=== PATIENT | female | born 1965 | race Caucasian/White ===

== ENCOUNTER → 2018-09-21 | Day surgery (SDC) | payer BC ==
[~2018-09-21] MED LIST: FENTANYL CITRATE/PF 100MCG/2 ML INJ ONE; FIBER PO; FISH OIL PO; GLUCOSAMINE &1 EAC1 PO; HYOSCYAMINE SULFATE 0.5 MG/ML INJ ONE; LEVOTHYROXINE25 MCG; LIDOCAINE HCL 2% LOCAL INJ 5 ML SDV VIAL INJ ONE; MIDAZOLAM HCL 2 MG/2 ML VIAL ONE; MULTIVITAMINS1 EAC7 PO; PROPOFOL IV EMULSION 10 MG/ML 50 ML VIAL ONE
[2018-09-21 10:45] VITALS: BP 136/93
--- NOTE | 2018-09-21 12:05 | Operative Report ---
DATE OF PROCEDURE: September 21, 2018 REFERRING PHYSICIAN: George Jefferson MD, [facility]. PROCEDURE PERFORMED: Colonoscopy. INDICATIONS FOR COLONOSCOPY: Surveillance colonoscopy, personal history of colon polyps. MEDICATION: Patient was done under MAC. Please see anesthesiologist's note. PROCEDURE: With the patient in the left lateral decubitus position, a flexible fiberoptic Olympus colonoscope was inserted into the rectum with ease and advanced all the way to the cecum. It was then withdrawn slowly. Mucosa overlying the cecum, ascending colon, transverse colon, descending, and sigmoid as well as the rectum appeared to be within normal limits. The scope was then retroflexed into the distal rectum and small internal hemorrhoids were noted, none of which was actively bleeding. The scope was then straightened out and was subsequently withdrawn. Patient tolerated the procedure well. IMPRESSION: Internal hemorrhoids, none actively bleeding. PLAN: Initiate high-fiber low-fat diet. Initiate high-fiber supplement. Patient might benefit from a followup colonoscopy in 3 years. Job#: [id number] GARY cc:GEORGE JEFFERSON MD
--- OUTSIDE RECORDS SUMMARY | 2018-09-24 09:26 | XMS REPORT | Encounter Summary ---
Author Organization Unknown Address [address] [place] [address] Phone [phone] Reason for Visit Medical Complaint Instructions 1. Acute sinusitis azithromycin 250 mg tablet Medrol (Gentry) 4 mg tablets in a dose pack 2. Pharyngitis rapid strep group A, throat 3. Fever rapid flu (A+B) Discussion Note Follow up with PCP if symptoms contiue, ER if symptoms worsen Patient educational handouts: No information available. Plan of Care Reminders Provider Appointments None recorded. Lab Rapid Flu (A+B) 02/06/2018 [facility] Rapid Strep Group a, Throat 02/06/2018 [facility] Referral None recorded. Procedures None recorded. Surgeries None recorded. Imaging None recorded. Medications Name Start Date azithromycin 250 mg tablet 2 tablets po qd x 1 day then 1 tablet po qd x4 days levothyroxine 25 mcg tablet TK 1 T PO D Medrol (Gentry) 4 mg tablets in a dose pack use as directed Medications Administered None recorded. Vitals Height Weight BMI Blood Pressure 5 ft 6 in 142 lbs 22.9 kg/m2 112/80 mm[Hg] Lab Results Date Name Specimen Result Interpretation Description Value Range Status Address Rapid Strep Group a, Throat Result negative [facility]: [address] [place] [address] Swab Location Right tonsillar pillars [facility]: [address] [place] [address] Rapid Flu (A+B) Influenza a negative [facility]: [address] [place] [address] Influenza B negative [facility]: [address] [place] [address] Allergies Code Code System Name Reaction Severity Status Onset 2669 RxNorm Codeine Itching Active 20280207 RxNorm Flagyl Hives Active Inderal Hives Active Penicillins Hives Active RxNorm Vancomycin Active Problems Name Status Onset Date Source Acute Sinusitis Active Encounter Acute Maxillary Sinusitis Active Encounter Maxillary Sinusitis Active Encounter Pharyngitis Active Encounter Acute Tonsillitis Active Encounter Acute Upper Respiratory Infection Active Encounter Upper Respiratory Infection Active Encounter Acute Bronchitis Active Encounter Allergic Rhinitis Active Encounter Posterior Rhinorrhea Active Encounter Procedures Date Name Performed by 09/03/2006 Hysterectomy Information not available Appendectomy Information not available Vaccine List Vaccine Type influenza, injectable, quadrivalent 06/03/2017 influenza, unspecified formulation 06/03/2010 Social History Smoking Status Never Smoker Past Encounters 02/06/2018 Acute Sinusitis; Pharyngitis; Fever Robina Chaves PA-C: [address] [place] [address], Ph. History of Present Illness Throat-Oral Complaint Reported By: Patient HPI: Location: throat. Quality: sore throat, congested. Severity: moderate. Duration: allergies for weeks, ibuprofen days. Onset/Timing: sudden. Context: no sick contacts, no foreign travel, non-smoker, allergies. Modifying factors: OTC medication. Associated Symptoms: no fever, no body aches, no sputum production, no shortness of breath, no wheezing, no change in number of pillows needed to sleep at night, no sweats, no significant weight gain, no significant weight loss, no morning cough, no vomiting, no diarrhea, no rash, no nausea, fever, headache, sore throat Review of Systems:ROS as noted in the HPI Review of Systems Basic Reported By: Patient Physical Exam Adult Basic Reported By: Patient Constitutional: General Appearance: healthy-appearing, well-nourished, well-developed. Level of Distress: NAD. Ambulation: ambulating normally Psychiatric: Mental Status: active and alert. Orientation: to time, to place, to person Eyes: Lids and Conjunctivae: non-injected, no discharge, no pallor. EOM: EOMI. Lens: clear. Sclerae: non-icteric. Vision: acuity grossly intact Rxq-Tvit-Fwnbe-Throat: Ears: no lesions on external ear, no outer ear tenderness, EACs clear, TMs clear. Hearing: no hearing loss. Nose: no lesions on external nose, nares patent, no septal deviation, nasal passages clear, sinus tenderness, nasal discharge--purulent, post nasal drip. Lips, Teeth, and Gums: no mouth or lip ulcers, no bleeding gums, normal dentition. Oropharynx: moist mucous membranes, no exudates, tonsils not enlarged, erythema Neck: Neck: supple, trachea midline, no masses, FROM. Lymph Nodes: no cervical LAD. Thyroid: no enlargement, non-tender, no nodules Lungs: Respiratory effort: no dyspnea, no tachypnea, no use of accessory muscles, no intercostal retractions. Auscultation: breath sounds normal Cardiovascular: Heart Auscultation: RRR, no murmurs Musculoskeletal:: Joints, Bones, and Muscles: normal movement of all extremities Neurologic: Gait and Station: normal gait, normal station. Cranial Nerves: grossly intact. Sensation: grossly intact Skin: Inspection and palpation: no rash, no lesions Back: Thoracolumbar Appearance: normal curvature
--- OUTSIDE RECORDS SUMMARY | 2018-09-24 09:26 | XMS REPORT | Encounter Summary ---
Author Organization Unknown Address [address] [place] [address] Phone [phone] Reason for Visit Medical Complaint Instructions 1. Upper respiratory infection upper respiratory infection (cold): care instructions viral infections: care instructions rapid strep group A, throat 2. Acute sinusitis doxycycline hyclate 100 mg capsule 3. Elevated blood-pressure reading without diagnosis of hypertension Discussion Note take charge of your health provided to pt with education and questions answered Plan of Care Patient Instructions FU with PCP if symptoms worsening or not improving. Reminders Provider Appointments None recorded. Lab Rapid Strep Group a, Throat 07/15/2018 [facility] Referral None recorded. Procedures None recorded. Surgeries None recorded. Imaging None recorded. Medications Name Start Date doxycycline hyclate 100 mg capsule Take 1 capsule twice a day by oral route with meals for 7 days. Mobic Synthroid 100 mcg tablet Take 1 tablet every day by oral route. Medications Administered None recorded. Vitals Height Weight BMI Blood Pressure 5 ft 6 in 145 lbs 23.4 kg/m2 118/88 mm[Hg] Lab Results Date Name Specimen Result Interpretation Description Value Range Status Address Rapid Strep Group a, Throat Result negative [facility]: [address] [place] [address] Swab Location Left and Right tonsillar pillars [facility]: [address] [place] [address] Allergies Code Code System Name Reaction Severity Status Onset 113567 RxNorm Bactrim Active 2670 RxNorm Codeine Itching Active 20280207 RxNorm Flagyl Hives Active Inderal Hives Active Penicillins Hives Active 19774 RxNorm Vancomycin Active Problems No Known Problems Procedures Date Name Performed by 09/03/2006 Hysterectomy Information not available Appendectomy Information not available Vaccine List Vaccine Type influenza, injectable, quadrivalent 06/03/2017 07/08/2018 influenza, unspecified formulation 06/03/2010 Td (adult) 07/04/2013 Social History Smoking Status Never Smoker Past Encounters 07/09/2018 Upper Respiratory Infection; Acute Sinusitis; Elevated Blood-pressure Reading without Diagnosis of Hypertension Modesta Proctor PA-C: [address] [place] [address], Ph. History of Present Illness Throat-Oral Complaint Reported By: Patient HPI: Location: throat. Quality: sore throat, congested. Duration: 1 days. Onset/Timing: sudden. Context: no sick contacts, no foreign travel, non-smoker, allergies; was at a this weekend. Associated Symptoms: no fever, no body aches, no sputum production, no shortness of breath, no wheezing, no change in number of pillows needed to sleep at night, no sweats, no significant weight gain, no significant weight loss, no morning cough, no vomiting, no diarrhea, no rash, no nausea, headache, sore throat Review of Systems Basic Reported By: Patient Constitutional: Constitutional: no fever Eyes: Eyes: no eye complaints Fjex-Hedg-Choun-Throat: Ears: no ear complaints. Nose: nose/sinus problems. Mouth/Throat: no bleeding gums, no mouth complaints, no teeth problems, sore throat Cardiovascular: Cardiovascular: no chest pain, no shortness of breath, no known heart murmur Respiratory: Respiratory: no cough, no wheezing, no shortness of breath Gastrointestinal: Gastrointestinal: no abdominal pain, no vomiting / diarrhea Musculoskeletal: Musculoskeletal: no muscle aches Skin: Skin: no rashes Neurologic: Neurologic: no loss of consciousness, no weakness, no numbness, no seizures, no dizziness, no headaches, headache Physical Exam Adult Basic Reported By: Patient Constitutional: General Appearance: healthy-appearing, well-nourished, well-developed. Level of Distress: NAD. Ambulation: ambulating normally Psychiatric: Mental Status: active and alert. Orientation: to time, to place, to person Eyes: Lids and Conjunctivae: non-injected, no discharge, no pallor. Pupils: PERRLA. Corneas: grossly intact. EOM: EOMI. Lens: clear. Sclerae: non-icteric. Vision: acuity grossly intact Jcd-Znys-Zlpdb-Throat: Ears: no lesions on external ear, no outer ear tenderness, EACs clear, TMs clear. Hearing: no hearing loss. Nose: no lesions on external nose, nares patent, no septal deviation, nasal passages clear, sinus tenderness, post nasal drip. Lips, Teeth, and Gums: no mouth or lip ulcers, no bleeding gums, normal dentition. Oropharynx: moist mucous membranes, no erythema, no exudates, tonsils not enlarged Neck: Lymph Nodes: no cervical LAD, no supraclavicular LAD Lungs: Respiratory effort: no dyspnea, no tachypnea, no use of accessory muscles, no intercostal retractions. Auscultation: breath sounds normal Cardiovascular: Heart Auscultation: RRR, no murmurs Neurologic: Gait and Station: normal gait, normal station
--- OUTSIDE RECORDS SUMMARY | 2018-09-24 09:26 | XMS REPORT | Encounter Summary ---
Author Organization Unknown Address [address] [place] [address] Phone [phone] Reason for Visit Medical Complaint Instructions 1. Upper respiratory infection upper respiratory infection (cold): care instructions viral infections: care instructions 2. Elevated blood-pressure reading without diagnosis of hypertension Discussion Note take charge of your health provided to pt with education and questions answered Plan of Care Patient Instructions FU with PCP if symptoms worsening or not improving. Reminders Provider Appointments None recorded. Lab None recorded. Referral None recorded. Procedures None recorded. Surgeries None recorded. Imaging None recorded. Medications Name Start Date Mobic Synthroid 100 mcg tablet Take 1 tablet every day by oral route. Medications Administered None recorded. Vitals Height Weight BMI Blood Pressure 5 ft 6 in 145 lbs 23.4 kg/m2 118/88 mm[Hg] Lab Results None recorded. Allergies Code Code System Name Reaction Severity Status Onset 921200 RxNorm Bactrim Active 2670 RxNorm Codeine Itching Active 676615 RxNorm Flagyl Hives Active Inderal Hives Active Penicillins Hives Active 21240 RxNorm Vancomycin Active Problems No Known Problems Procedures Date Name Performed by 09/03/2006 Hysterectomy Information not available Appendectomy Information not available Vaccine List Vaccine Type influenza, injectable, quadrivalent 06/03/2017 07/08/2018 influenza, unspecified formulation 06/03/2010 Td (adult) 07/04/2013 Social History Smoking Status Never Smoker Past Encounters 07/09/2018 Upper Respiratory Infection; Elevated Blood-pressure Reading without Diagnosis of Hypertension TERRY EnglishC: [address], [place] [address], Ph. History of Present Illness Throat-Oral Complaint [...] no fever Eyes: Eyes: no eye complaints Yfgp-Pvch-Ltmgq-Throat: Ears: no ear complaints. Nose: nose/sinus problems. [...] clear. Sclerae: non-icteric. Vision: acuity grossly intact Flq-Zrug-Pymco-Throat: Ears: no lesions on external ear, no [...]
--- OUTSIDE RECORDS SUMMARY | 2018-09-24 09:26 | XMS REPORT | Encounter Summary ---
Author Organization Unknown Address [address] [place] [address] Phone [phone] Reason for Visit Medical Complaint Instructions 1. Upper respiratory infection upper respiratory infection (cold): care instructions viral infections: care instructions 2. Acute sinusitis doxycycline hyclate 100 mg [...] Code System Name Reaction Severity Status Onset 070056 RxNorm Bactrim Active 2670 RxNorm Codeine Itching Active 350140 RxNorm Flagyl Hives Active Inderal Hives Active Penicillins Hives Active 94604 RxNorm Vancomycin Active Problems No Known Problems Procedures Date Name Performed by 09/03/2006 Hysterectomy Information not available Appendectomy Information not available Vaccine List Vaccine Type influenza, injectable, quadrivalent 06/03/2017 07/08/2018 influenza, unspecified formulation 06/03/2010 Td (adult) 07/04/2013 Social History Smoking Status Never Smoker Past Encounters 07/09/2018 Upper Respiratory Infection; Acute Sinusitis; Elevated Blood-pressure Reading without Diagnosis of Hypertension Modesta Proctor PA-C: [address], [place] [address], Ph. History of Present Illness Throat-Oral Complaint [...] no fever Eyes: Eyes: no eye complaints Xprr-Zyyg-Lwfxi-Throat: Ears: no ear complaints. Nose: nose/sinus problems. [...] clear. Sclerae: non-icteric. Vision: acuity grossly intact Khn-Bebs-Rbgmc-Throat: Ears: no lesions on external ear, no [...]
--- OUTSIDE RECORDS SUMMARY | 2018-09-24 09:26 | XMS REPORT ---
Author Author [facility] Address Unknown Phone Unavailable Care Team Providers Care Lens And Frames Prescription Clerk Name Role Phone Unavailable Unavailable Payers Payer Name Policy Type Policy Number Effective Date Expiration Date Problems This patient has no known problems. Allergies, Adverse Reactions, Alerts Allergy Name Allergy Type Status Severity Reaction(s) Onset Date Inactive Date Treating Clinician Comments Penicillins DA Active [place] 2017-03-08 00:00:00 codeine DA Active [place] 2017-03-08 00:00:00 metronidazole DA Active [place] 2017-03-08 00:00:00 propranolol DA Active [place] 2017-03-08 00:00:00 vancomycin DA Active [place] 2017-03-08 00:00:00 Medications This patient has no known medications.
--- OUTSIDE RECORDS SUMMARY | 2018-09-24 09:26 | XMS REPORT | Encounter Summary ---
Author Organization Unknown Address [address] [place] [address] Phone [phone] Reason for Visit Medical Complaint Instructions 1. Dysuria urinalysis, dipstick culture, urine 2. Vaginitis Discussion Note may use K-Y silk to vaginal opening as needed. wear cotton panties. will send for urine culture and treat if indicated. follow-up with geometry teacher as needed. Patient educational handouts: No information available. Plan of Care Reminders Provider Appointments None recorded. Lab Urinalysis, Dipstick 06/05/2018 [facility] Culture, Urine 06/05/2018 [facility] Referral None recorded. Procedures None recorded. Surgeries None recorded. Imaging None recorded. Medications Name Start Date Synthroid 100 mcg tablet Take 1 tablet every day by oral route. Medications Administered None recorded. Vitals Height Weight BMI Blood Pressure 5 ft 6 in 141 lbs 22.8 kg/m2 116/76 mm[Hg] Lab Results Date Name Specimen Result Interpretation Description Value Range Status Address 06/05/2018 Urinalysis, Dipstick Color : Yellow [facility]: [address] [place] [address] Clarity : Clear [facility]: [address] [place] [address] Leukocytes : Negative [facility]: [address] [place] [address] Nitrites : Negative [facility]: [address] [place] [address] Urobilinogen : Normal [facility]: [address] [place] [address] Protein : Negative [facility]: [address] [place] [address] Ph : 6.5 [facility]: [address] [place] [address] Blood : Negative [facility]: [address] [place] [address] Specific [place] : 1.010 [facility]: [address] [place] [address] Ketones : Negative [facility]: [address] [place] [address] Bilirubin : Negative [facility]: [address] [place] [address] Glucose Negative [facility]: [address] [place] [address] Allergies Code Code System Name Reaction Severity Status Onset 267 RxNorm Codeine Itching Active 20280207 RxNorm Flagyl Hives Active Inderal Hives Active Penicillins Hives Active 11503 RxNorm Vancomycin Active Problems No Known Problems Procedures Date Name Performed by 09/03/2006 Hysterectomy Information not available Appendectomy Information not available Vaccine List Vaccine Type influenza, injectable, quadrivalent 06/03/2017 influenza, unspecified formulation 06/03/2010 Social History Smoking Status Never Smoker Past Encounters 06/05/2018 Dysuria; Vaginitis Amanda Calderon, [employer], S: [address] [place] [address], Ph. History of Present Illness Yrdfxo-ZFM-Ulditbc Reported By: Patient HPI: Location: urethra, vagina. Quality: burning, itching. Severity: mild. Duration: constant. Onset/Timing: sudden. Context: ; pt recently changed laundry detergents. pt states that she has had yeast infections in the past and it doesn't feel like that. Associated Symptoms: no fever/chills, no blood in the urine, no pain during urination, no vaginal discharge, no urgency, burning sensation during urination Review of Systems Basic Reported By: Patient Constitutional: Constitutional: no fever Cardiovascular: Cardiovascular: no chest pain, no shortness of breath, no known heart murmur Respiratory: Respiratory: no cough, no wheezing, no shortness of breath Genitourinary: Genitourinary: no discharge, dysuria Physical Exam Adult Basic, Adult Female Complete Reported By: Patient Constitutional: General Appearance: healthy-appearing, well-nourished, well-developed. Level of Distress: NAD. Ambulation: ambulating normally Psychiatric: Mental Status: active and alert Lungs: Respiratory effort: no dyspnea, no tachypnea, no use of accessory muscles. Auscultation: breath sounds normal Cardiovascular: Heart Auscultation: RRR, no murmurs Abdomen: Bowel Sounds: normal. Inspection and Palpation: soft, non-distended, no tenderness, no guarding, no rebound tenderness, no masses, no CVA tenderness. Liver: non-tender, no hepatomegaly. Spleen: non-tender, no splenomegaly
--- OUTSIDE RECORDS SUMMARY | 2018-09-24 09:26 | XMS REPORT | Continuity of Care Document ---
Author Author [facility] Interface Address Unknown Phone Unavailable Problems Problem Status Onset Date Classification Date Reported Comments Source Acute sinusitis 07/09/2018 Diagnosis 07/15/2018 [facility] Upper respiratory infection 07/09/2018 Diagnosis 07/15/2018 [facility] Elevated blood-pressure reading without diagnosis of hypertension 07/09/2018 Diagnosis 07/15/2018 [facility] Vaginitis 06/05/2018 Diagnosis 06/05/2018 [facility] Dysuria 06/05/2018 Diagnosis 06/05/2018 [facility] Fever 02/06/2018 Diagnosis 02/06/2018 [facility] Acute Sinusitis Problem 02/06/2018 [facility] Acute Maxillary Sinusitis Problem 02/06/2018 [facility] Maxillary Sinusitis Problem 02/06/2018 [facility] Pharyngitis Problem 02/06/2018 [facility] Acute Tonsillitis Problem 02/06/2018 [facility] Acute Upper Respiratory Infection Problem 02/06/2018 [facility] Upper Respiratory Infection Problem 02/06/2018 [facility] Acute Bronchitis Problem 02/06/2018 [facility] Allergic Rhinitis Problem 02/06/2018 [facility] Posterior Rhinorrhea Problem 02/06/2018 [facility] Medications Medication Details Route Status Patient Instructions Ordering Provider Order Date Source Sean Estrada Active [facility] Levothyroxine Sodium 0.1 MG Oral Tablet [Synthroid] Synthroid 100 mcg tablet Take 1 tablet every day by oral route. Active [facility] doxycycline hyclate 100 MG Oral Capsule doxycycline hyclate 100 mg capsule Take 1 capsule twice a day by oral route with meals for 7 days. Active [facility] Azithromycin 250 MG Oral Tablet azithromycin 250 mg tablet 2 tablets po qd x 1 day then 1 tablet po qd x4 days Active [facility] Levothyroxine Sodium 0.025 MG Oral Tablet levothyroxine 25 mcg tablet TK 1 T PO D Active [facility] Medrol ([place]) 4 mg tablets in a dose pack Medrol ([place]) 4 mg tablets in a dose pack use as directed Active [facility] Allergies, Adverse Reactions, Alerts Substance Category Reaction Severity Reaction type Status Date Reported Comments Source Penicillins Hives Allergy to substance 06/03/2009 [facility] Codeine Itching Allergy to substance 07/26/2011 [facility] Flagyl Hives Allergy to substance 07/26/2011 [facility] Inderal Hives Allergy to substance 07/26/2011 [facility] Vancomycin Allergy to substance 08/07/2012 [facility] Bactrim Allergy to substance 07/09/2018 [facility] Immunizations Immunization Date Given Site Status Last Updated Comments Source influenza, injectable, quadrivalent 07/08/2018 completed [facility] influenza, injectable, quadrivalent 06/03/2017 completed [facility] Td (adult) 07/04/2013 completed [facility] influenza, unspecified formulation 06/03/2010 completed [facility] Results Order Name Results Value Reference Range Date Interpretation Comments Source RESULT negative 07/09/2018 [facility] SWAB LOCATION Left and Right tonsillar pillars 07/09/2018 [facility] Urinalysis macro (dipstick) panel - Urine COLOR : Yellow 06/05/2018 [facility] Urinalysis macro (dipstick) panel - Urine CLARITY : Clear 06/05/2018 [facility] Urinalysis macro (dipstick) panel - Urine LEUKOCYTES : Negative 06/05/2018 [facility] Urinalysis macro (dipstick) panel - Urine NITRITES : Negative 06/05/2018 [facility] Urinalysis macro (dipstick) panel - Urine UROBILINOGEN : Normal 06/05/2018 [facility] Urinalysis macro (dipstick) panel - Urine PROTEIN : Negative 06/05/2018 [facility] Urinalysis macro (dipstick) panel - Urine pH : 6.5 06/05/2018 [facility] Urinalysis macro (dipstick) panel - Urine BLOOD : Negative 06/05/2018 [facility] Urinalysis macro (dipstick) panel - Urine SPECIFIC GRAVITY : 1.010 06/05/2018 [facility] Urinalysis macro (dipstick) panel - Urine KETONES : Negative 06/05/2018 [facility] Urinalysis macro (dipstick) panel - Urine BILIRUBIN : Negative 06/05/2018 [facility] Urinalysis macro (dipstick) panel - Urine GLUCOSE Negative 06/05/2018 [facility] RESULT negative 02/06/2018 [facility] SWAB LOCATION Right tonsillar pillars 02/06/2018 [facility] Influenza A negative 02/06/2018 [facility] Influenza B negative 02/06/2018 [facility] Vital Signs Vital Sign Value Date Comments Source Diastolic (mm Hg) 88 07/09/2018 [facility] Height 66 07/09/2018 [facility] Systolic (mm Hg) 118 07/09/2018 [facility] Weight 145 07/09/2018 [facility] Diastolic (mm Hg) 76 06/05/2018 [facility] Height 66 06/05/2018 [facility] Systolic (mm Hg) 116 06/05/2018 [facility] Weight 141 06/05/2018 [facility] Diastolic (mm Hg) 80 02/06/2018 [facility] Height 66 02/06/2018 [facility] Systolic (mm Hg) 112 02/06/2018 [facility] Weight 142 02/06/2018 [facility] Encounters Location Location Details Encounter Type Encounter Number Reason For Visit Attending Provider ADM Date DC Date Status Source [place] - [facility] - [id number] TERRY [facility]: [address] [place] [address], Ph. [id number] Robina Chaves 02/06/2018 [facility] [place] [facility] - [id number] Amanda Calderon, [employer], S: [address] [place] [address], Ph. [id number] Amanda Calderon 06/05/2018 [facility] [place] [facility] - [id number] TERRY [facility]: [address] [place] [address], Ph. [id number] Modesta Proctor 07/09/2018 [facility] [place] [facility] - [id number] TERR[facility]: [address] [place] [address], Ph. [id number] Modesta Proctor 07/09/2018 [facility] [place] - [facility] - [id number] TERRY [facility]: [address] [place] [address], Ph. [id number] Modesta Proctor 07/09/2018 [facility] Procedures Procedure Code Date Perfomer Comments Source Hysterectomy 09/03/2006 [facility] Appendectomy [facility]
== END | disposition home or self-care (01) ==
LOC: OR 07:30
PROVIDERS: ATTEND Internal Medicine Gastroenterology
DX: Z12.11 Encounter for screening for malignant neoplasm of colon (principal); Z86.010 Personal history of colon polyps; K64.8 Other hemorrhoids; Z01.810 Encounter for preprocedural cardiovascular examination; R03.0 Elevated blood-pressure reading, without diagnosis of hypertension; Z88.0 Allergy status to penicillin; Z88.1 Allergy status to other antibiotic agents; Z88.5 Allergy status to narcotic agent; Z88.8 Allergy status to other drugs, medicaments and biological substances
CPT/HCPCS: 45378; 93005; J1980; J2001; J2250

== ENCOUNTER → 2023-09-12 | Day surgery (SDC) | payer BC, OTHER ==
[~2023-09-12] MED LIST changes: +AMLODIPINE BESYL5 MG PO; +CRESTOR10 MG PO; +FIBER TABS625 MG PO; +FISH OIL 1,0001 EAC7 PO; +GABAPENTIN300 MG PO; +LACTATED RINGER'S 1,000 ML ONE; -LEVOTHYROXINE25 MCG; +LEVOTHYROXINE25 MCG PO; +METOCLOPRAMIDE HCL 10 MG/2ML VIAL ONE; -MIDAZOLAM HCL 2 MG/2 ML VIAL ONE; +MULTI-VITAMIN1 EACH PO; +PROPOFOL IV EMULSION 10 MG/ML 20 ML VIAL ONE; -PROPOFOL IV EMULSION 10 MG/ML 50 ML VIAL ONE
[2023-09-12 08:36] VITALS: TEMP 97
[2023-09-12 09:05] VITALS: BP 124/82; PULSE 63; RESP 16; O2SAT 99
== END | disposition home or self-care (01) ==
LOC: OR 06:08
PROVIDERS: ATTEND Internal Medicine Gastroenterology
DX: K29.70 Gastritis, unspecified, without bleeding (principal); D12.4 Benign neoplasm of descending colon; K31.7 Polyp of stomach and duodenum; K20.90 Esophagitis, unspecified without bleeding; K57.30 Diverticulosis of large intestine without perforation or abscess without bleeding; K64.8 Other hemorrhoids; I10 Essential (primary) hypertension; E78.5 Hyperlipidemia, unspecified; E03.9 Hypothyroidism, unspecified; Z88.6 Allergy status to analgesic agent; Z88.1 Allergy status to other antibiotic agents; Z88.8 Allergy status to other drugs, medicaments and biological substances; Z01.810 Encounter for preprocedural cardiovascular examination; Z79.899 Other long term (current) drug therapy; Z85.820 Personal history of malignant melanoma of skin
CPT/HCPCS: 43239; 45385; 93005; C9113; J1980; J2001; J2704; J2765; J3010; J7121

== ENCOUNTER → 2025-04-03 | Day surgery (SDC) | payer OTHER ==
[2025-03-25 11:54] LABS: BASOPHILS % 1.1 % (0.0-1.0); EOSINOPHILS % 1.8 % (0.0-6.0); LYMPHOCYTES % 30.0 % (18.0-39.1); MONOCYTES % 11.6 % (4.4-11.3); NEUTROPHILS % 55.0 % (38.7-80.0); RED CELL DISTRIBUTION WIDTH 14.3 % (11.7-14.4)
[2025-03-25 12:24] LABS: EST GLOMERULAR FILTRATION RATE 96.0 ML/MIN (>=60)
[~2025-04-03] MED LIST changes: +ACETAMINOPHEN 1000 MG/100 ML 100 ML IV ONE; +ALLEGRA ALLERGY60 MG PO; +D3-5000125 MCG; +DEXAMETHASONE SOD PHOS INJ 4 MG/ML SDV ONE; +GLYCOPYRROLATE INJ 0.2 MG/ML VIAL ONE; +HYDROXYZINE HCL10 MG PO; -HYOSCYAMINE SULFATE 0.5 MG/ML INJ ONE; -LACTATED RINGER'S 1,000 ML ONE; -LIDOCAINE HCL 2% LOCAL INJ 5 ML SDV VIAL INJ ONE; -METOCLOPRAMIDE HCL 10 MG/2ML VIAL ONE; +MIDAZOLAM HCL 2 MG/2 ML VIAL ONE; +ONDANSETRON HCL INJ 2MG/ML 2ML 2 MG/ML VIAL ONE
[2025-04-03 10:43] VITALS: TEMP 97.2
[2025-04-03 11:35] VITALS: BP 150/79; PULSE 65; RESP 16; O2SAT 99
[2025-04-03] MEDS: LACTATED RINGER'S 1,000 ML ONE (12:42)
[2025-04-03] MEDS: CEFAZOLIN SODIUM 2 GM ONE (12:42)
== END | disposition home or self-care (01) ==
LOC: OR 08:50
PROVIDERS: ATTEND Orthopaedic Surgery
DX: S83.242A Other tear of medial meniscus, current injury, left knee, initial encounter (principal); S83.282A Other tear of lateral meniscus, current injury, left knee, initial encounter; M94.262 Chondromalacia, left knee; M67.52 Plica syndrome, left knee; M65.162 Other infective (teno)synovitis, left knee; I10 Essential (primary) hypertension; E78.2 Mixed hyperlipidemia; E03.9 Hypothyroidism, unspecified; F10.90 Alcohol use, unspecified, uncomplicated; X58.XXXA Exposure to other specified factors, initial encounter; Z01.810 Encounter for preprocedural cardiovascular examination; Z01.812 Encounter for preprocedural laboratory examination; Z88.0 Allergy status to penicillin; Z88.1 Allergy status to other antibiotic agents; Z88.5 Allergy status to narcotic agent; Z88.8 Allergy status to other drugs, medicaments and biological substances; Z79.890 Hormone replacement therapy; Z79.1 Long term (current) use of non-steroidal anti-inflammatories (NSAID); Z79.899 Other long term (current) drug therapy
CPT/HCPCS: 29880; 36415; 80053; 85025; 93005; J0131; J1100; J2405; J2704; J3010; J7121; J2250